=== PATIENT | female | born 2000 | race Caucasian/White ===

== ENCOUNTER 2018-02-08 10:49 | Emergency (ER) | payer OTHER ==
[~2018-02-08] VITALS: Ht 160 cm; Wt 53.2 kg
[~2018-02-08 10:49] MED LIST: K-DUR20 MEQ PO
[2018-02-08 11:12] LABS: MCH 29.8 PG (29.0-34.0); MCHC 33.3 G/DL (30.0-36.0); MCV 89.4 FL (83-99); PLATELET COUNT 233 K/uL (156-360); RBC DIS.WIDTH-CV 12.2 % (11.8-14.6); RBC DIS.WIDTH-SD 40.3 % (39-53); RED BLOOD COUNT 4.36 M/uL (3.80-5.20); WHITE BLOOD COUNT 5.9 K/uL (4.1-10.2)
[2018-02-08 11:23] LABS: CHLORIDE 107 mEq/L (99-109); POTASSIUM 4.1 mEq/L (3.7-5.4); SODIUM 142 mEq/L (136-147)
[2018-02-08 11:25] LABS: GLUCOSE 96 mg/dL (70-99)
[2018-02-08 11:29] LABS: CREATININE 0.7 mg/dL (0.6-1.3); GFR ESTIMATE (CALCULATED) > 59 mL/min/
[2018-02-08 11:30] LABS: UREA NITROGEN (BUN) 9 mg/dL (9-23)
[2018-02-08 11:33] LABS: TROP-I INTERPRETATION NEGATIVE; TROPONIN-I < 0.01 ng/mL (0.0-0.30)
[2018-02-08 12:45] LABS: THYROTROPIN (TSH) 3.1 MIU/L (0.4-5.5)
[2018-02-08 13:44] VITALS: BP 144/85
== END 2018-02-08 13:45 | disposition home or self-care (01) ==
LOC: EME 10:49
DX: R00.2 Palpitations (principal); R07.9 Chest pain, unspecified; I45.10 Unspecified right bundle-branch block
CPT/HCPCS: 71046; 80048; 84443; 84484; 85027; 93005; 99281; 99284

== ENCOUNTER 2018-05-25 21:46 | Emergency (ER) | payer OTHER ==
[~2018-05-25] VITALS: Ht 160 cm; Wt 54.0 kg
[2018-05-25 23:05] LABS: HEMATOCRIT 36.4 % (36.0-46.0); HEMOGLOBIN 12.1 G/DL (11.9-15.5); MCHC 33.2 G/DL (30.0-36.0); MCV 90.3 FL (83-99); PLATELET COUNT 214 K/uL (156-360); RBC DIS.WIDTH-CV 11.8 % (11.8-14.6); RBC DIS.WIDTH-SD 38.8 % (39-53); RED BLOOD COUNT 4.03 M/uL (3.80-5.20); WHITE BLOOD COUNT 6.8 K/uL (4.1-10.2)
[2018-05-25 23:17] LABS: D-DIMER ELISA < 150.00 ng/mLDDU (<230)
[2018-05-25 23:18] LABS: CHLORIDE 108 mEq/L (99-109); POTASSIUM 4.2 mEq/L (3.7-5.4); SODIUM 144 mEq/L (136-147)
[2018-05-25 23:20] LABS: GLUCOSE 98 mg/dL (70-99)
[2018-05-25 23:23] LABS: CREATININE 0.8 mg/dL (0.6-1.3); GFR ESTIMATE (CALCULATED) > 59 mL/min/
[2018-05-25 23:24] LABS: UREA NITROGEN (BUN) 8 mg/dL (9-23)
[2018-05-25 23:27] LABS: TROP-I INTERPRETATION NEGATIVE; TROPONIN-I < 0.01 ng/mL (0.0-0.30)
[2018-05-26 00:16] VITALS: BP 108/73
== END 2018-05-26 00:18 | disposition home or self-care (01) ==
LOC: EME 21:46
PROVIDERS: Emergency Medicine
DX: R07.89 Other chest pain (principal); R68.84 Jaw pain; I45.10 Unspecified right bundle-branch block
CPT/HCPCS: 71046; 80048; 84484; 85027; 85379; 93005; 99281; 99284